=== PATIENT | female | born 2000 | race African-American/Black ===

== ENCOUNTER 2024-06-23 21:19 | Emergency (ER) | payer OTHER ==
[2024-06-23 21:51] VITALS: BP 145/78
[2024-06-23 22:01] VITALS: BP 134/92
[2024-06-23 22:15] VITALS: BP 123/87
[2024-06-23] MEDS ORDERED: ACETAMINOPHEN 500 MG TAB PO ONE (22:30)
[2024-06-23] MEDS ORDERED: IBUPROFEN 600 MG/TAB PO ONE (22:30)
[2024-06-23 22:31] VITALS: BP 142/89
[2024-06-23 22:55] VITALS: BP 142/89
== END 2024-06-23 22:55 | disposition home or self-care (01) | DRG 563 ==
LOC: ED 21:19
DX: S63.501A Unspecified sprain of right wrist, initial encounter (principal); S80.11XA Contusion of right lower leg, initial encounter; V49.40XA Driver injured in collision with unspecified motor vehicles in traffic accident, initial encounter; Z87.81 Personal history of (healed) traumatic fracture